=== PATIENT | female | born 1975 | race African-American/Black ===

== ENCOUNTER 2021-11-23 11:09 | Emergency (ER) | payer MEDICAID, OTHER ==
[~2021-11-23] VITALS: Ht 157.5 cm; Wt 57.0 kg
[2021-11-23 11:26] VITALS: BP 123/82
[2021-11-23] MEDS ORDERED: KETOROLAC 60MG/2ML VIAL IM ONE (11:30)
[2021-11-23] MEDS ORDERED: METHOCARBAMOL 500MG TABLET PO ONE ×2 (11:30)
[2021-11-23] MEDS ORDERED: ACETAMINOPHEN 325MG TABLET PO ONE (11:30)
[2021-11-23] MEDS ORDERED: NAPR-681 MT (14:28)
[2021-11-23] MEDS ORDERED: LIDO1ADH5 TP (14:28)
[2021-11-23] MEDS ORDERED: METH-773 MT (14:28)
== END 2021-11-23 14:40 | disposition home or self-care (01) ==
LOC: ER 11:09
DX: S39.012A Strain of muscle, fascia and tendon of lower back, initial encounter (principal); S30.0XXA Contusion of lower back and pelvis, initial encounter; Y07.59 Other non-family member, perpetrator of maltreatment and neglect; Y04.2XXA Assault by strike against or bumped into by another person, initial encounter; Y93.F9 Activity, other caregiving; Y92.89 Other specified places as the place of occurrence of the external cause
CPT/HCPCS: 72100; 99283

== ENCOUNTER 2022-01-30 16:29 | Emergency (ER) | payer OTHER ==
[~2022-01-30] VITALS: Ht 162.6 cm; Wt 60.0 kg
[~2022-01-30 16:29] MED LIST: LIDO1ADH5 TP; METH-773 MT; NAPR-681 MT
[2022-01-30 16:34] VITALS: BP 134/88
[2022-01-30] MEDS ORDERED: NITR-87 GT (16:41)
[2022-01-30] MEDS ORDERED: IBUPROFEN 600MG TABLET PO ONE (17:30)
[2022-01-30 17:54] LABS: BASOPHILS % 0.9 % (0.0-2.0); EOSINOPHILS % 0.9 % (0.0-5.0); HEMOGLOBIN. 9.3 g/dL (12.0-16.0); LYMPHOCYTES % 22.2 % (20.0-50.0); MEAN CORPUSCULAR HEMOGLOBIN 19.1 pg (28.0-32.0); MEAN CORPUSCULAR VOLUME 61.4 fL (81.0-99.0); MEAN PLATELET VOLUME 8.5 fl (7.4-10.4); MONOCYTES % 7.2 % (2.0-8.0); NEUTROPHILS % 68.8 % (40.0-76.0); PLATELET 392 x1000/uL (130-400); RED BLOOD CELL COUNT 4.89 mill/uL (4.2-5.4); RED CELL DISTRIBUTION WIDTH 21.9 % (11.6-14.6)
[2022-01-30 17:58] LABS: CHLORIDE 105 mEq/L (98-107)
[2022-01-30 18:09] LABS: B-HCG QUANTITATIVE < 1 mIU/mL (<3)
[2022-01-30] MEDS ORDERED: ACET-3163 MT (18:17)
[2022-01-30 18:43] LABS: PLATELET ESTIMATE NORMAL
== END 2022-01-30 19:30 | disposition home or self-care (01) ==
LOC: ER 16:36
DX: N93.8 Other specified abnormal uterine and vaginal bleeding (principal); D50.9 Iron deficiency anemia, unspecified
CPT/HCPCS: 36415; 76830; 76856; 80053; 81025; 84702; 85025; 86850; 86900; 99284

== ENCOUNTER 2022-04-04 15:11 | Emergency (ER) | payer MEDICAID, OTHER ==
[~2022-04-04] VITALS: Ht 157.5 cm; Wt 64.0 kg
[~2022-04-04 15:11] MED LIST changes: +ACET-3163 MT; +NITR-87 GT
[2022-04-04 19:57] LABS: BASOPHILS % 1.1 % (0.0-2.0); EOSINOPHILS % 1.2 % (0.0-5.0); HEMATOCRIT. 32.4 % (36.0-48.0); LYMPHOCYTES % 30.5 % (20.0-50.0); MEAN CORPUSCULAR HEMOGLOBIN 20.9 pg (28.0-32.0); MEAN CORPUSCULAR VOLUME 67.6 fL (81.0-99.0); MEAN PLATELET VOLUME 8.4 fl (7.4-10.4); MONOCYTES % 5.1 % (2.0-8.0); NEUTROPHILS % 62.1 % (40.0-76.0); PLATELET 292 x1000/uL (130-400); RED CELL DISTRIBUTION WIDTH 22.2 % (11.6-14.6)
[2022-04-04 20:02] LABS: CHLORIDE 100 mEq/L (98-107)
[2022-04-04 20:13] LABS: HCG SCREEN NEGATIVE
[2022-04-04 22:04] LABS: PLATELET ESTIMATE NORMAL
[2022-04-05 00:53] VITALS: BP 135/87
== END 2022-04-05 02:14 | disposition home or self-care (01) ==
LOC: ER 15:11
DX: R19.09 Other intra-abdominal and pelvic swelling, mass and lump (principal); D25.9 Leiomyoma of uterus, unspecified; N93.9 Abnormal uterine and vaginal bleeding, unspecified; N83.202 Unspecified ovarian cyst, left side; N83.201 Unspecified ovarian cyst, right side
CPT/HCPCS: 36415; 76830; 76856; 80053; 81025; 84703; 85025; 86850; 86900; 99284

== ENCOUNTER 2022-04-05 19:05 | Emergency (ER) | payer OTHER ==
[~2022-04-05] VITALS: Ht 154.9 cm; Wt 63.0 kg
[2022-04-05 20:43] LABS: BASOPHILS % 0.9 % (0.0-2.0); EOSINOPHILS % 0.5 % (0.0-5.0); HEMATOCRIT. 24.7 % (36.0-48.0); HEMOGLOBIN. 7.6 g/dL (12.0-16.0); LYMPHOCYTES % 30.5 % (20.0-50.0); MEAN CORPUSCULAR HEMOGLOBIN 20.7 pg (28.0-32.0); MEAN CORPUSCULAR VOLUME 67.7 fL (81.0-99.0); MEAN PLATELET VOLUME 7.9 fl (7.4-10.4); MONOCYTES % 5.5 % (2.0-8.0); NEUTROPHILS % 62.6 % (40.0-76.0); PLATELET 290 x1000/uL (130-400); RED BLOOD CELL COUNT 3.65 mill/uL (4.2-5.4); RED CELL DISTRIBUTION WIDTH 22.1 % (11.6-14.6)
[2022-04-05 21:42] VITALS: BP 108/69
[2022-04-05 21:54] LABS: HCG SCREEN NEGATIVE
[2022-04-05 21:54] LABS: CLARITY URINE CLOUDY (CLEAR); COLOR URINE RED (YELLOW); KETONES URINE TRACE (NEGATIVE); LEUKOCYTE ESTERASE URINE 1+ (NEGATIVE); NITRITE URINE NEGATIVE (NEGATIVE); OCCULT BLOOD URINE 3+ (NEGATIVE); PH URINE 5.5 (4.5-8.0); PROTEIN URINE 3+ (NEGATIVE); SPECIFIC GRAVITY URINE 1.027 (1.005-1.030); UROBILINOGEN URINE 0.2 E.U./dL (0.2-1.0)
[2022-04-05 21:58] LABS: CHLORIDE 102 mEq/L (98-107)
== END 2022-04-06 00:43 | disposition home or self-care (01) ==
LOC: ER 19:05
DX: N93.9 Abnormal uterine and vaginal bleeding, unspecified (principal); D64.9 Anemia, unspecified; Z79.899 Other long term (current) drug therapy
CPT/HCPCS: 36415; 80053; 81003; 84703; 85025; 86850; 86900; 93005; 99284